=== PATIENT | male | born 1950 | race Caucasian/White ===

== ENCOUNTER 2017-07-07 17:33 | Inpatient (IN) | payer MEDICARE, BC ==
[~2017-07-07] VITALS: Ht 182.9 cm; Wt 88.0 kg
[~2017-07-07 17:33] MED LIST: ADULT LOW DOSE81 MG PO; BENADRYL25 MG PO; CARISOPRODOL 3350 MG PO; CENTRUM SILVER1 EAC4 PO; CEPHALEXIN 500500 M3 PO; COLACE100 MG PO; COPAXONE40 MG/1 ML SQ; FIBERCON625 M1 PO; FLOMAX0.4 MG PO; HYDROCODONE-AP1 EAC6 PO; HYDROCODONE-AP1 EACH PO; IBUPROFEN 400400 M2 PO; IBUPROFEN 600600 M1 PO; IBUPROFEN 800800 M1 PO; LEXAPRO 10 MG T10 M1 PO; LIORESAL 10 MG10 MG PO; OXYCONTIN20 M1 PO; PEPCID20 MG PO; PERCOCET 7.5-31 EACH PO; PREDNISONE 10 M10 MG PO; PREDNISONE 20 M20 MG PO; PROMETHAZINE12.5 M1 PO; SENNA8.6 MG PO; SENOKOT-S1 TA1 PO; SOLU-MEDRO1000 MG/1 IVPB; VICODIN 5-5001 EACH PO; ZOFRAN ODT4 MG PO
[2017-07-07 17:35] VITALS: BP 184/96
[2017-07-07 18:03] LABS: ABSOLUTE BASOPHILS 0.1 thou/uL (0.0-0.2); ABSOLUTE EOSINOPHILS 0.5 thou/uL (0.0-0.7); ABSOLUTE LYMPHOCYTES 1.8 thou/uL (0.8-5.3); ABSOLUTE MONOCYTES 0.5 thou/uL (0.0-1.2); ABSOLUTE NEUTROPHILS 5.9 thou/uL (1.6-8.1); BASOPHILS 0.7 %; EOSINOPHILS 6.1 %; HEMATOCRIT 37.8 % (42.0-52.0); HEMOGLOBIN 12.4 gm/dL (14.0-18.0); LYMPHOCYTES 20.6 %; MCH 29.5 pg (26.0-34.0); MCHC 32.7 g/dL (28.0-37.0); MCV 90.1 fL (80.0-100.0); MPV 6.5 fl. (7.2-11.1); NUCLEATED RBCS 0 /100WBC; PLATELET COUNT* 327 thou/uL (150-400); POLYS 66.6 %; RDW-CV 13.7 % (10.5-14.5); WBC 8.9 thou/uL (4.0-11.0)
[2017-07-07 18:15] LABS: APTT 24.3 Seconds (25.0-31.3); PROTIME 9.6 Seconds (9.20-11.50)
[2017-07-07 18:16] LABS: ANION GAP 10 mmol/L (7-16); BUN 15 mg/dL (7-18); CALCIUM 8.3 mg/dL (8.5-10.1); CHLORIDE 100 mmol/L (98-107); CO2 28 mmol/L (21-32); CREATININE 0.9 mg/dL (0.6-1.3); GLUCOSE 92 mg/dL (70-99); POTASSIUM 4.2 mmol/L (3.5-5.1); SODIUM 138 mmol/L (136-145)
[2017-07-07 18:32] LABS: URINE BILIRUBIN NEGATIVE (Negative); URINE BLOOD 2+ (Negative); URINE CLARITY CLEAR; URINE COLOR YELLOW; URINE GLUCOSE-RANDOM NEGATIVE (Negative); URINE KETONES TRACE (Negative); URINE LEUKOCYTES-REFLEX NEGATIVE (Negative); URINE NITRITE-REFLEX NEGATIVE (Negative); URINE PROTEIN NEGATIVE (Negative); URINE UROBILINOGEN 0.2 E.U./dl (0.2-1.0)
[2017-07-07 18:33] LABS: ALKALINE PHOSPHATASE 85 U/L (46-116); NT-PRO BRAIN NAT PEPTIDE 153 pg/mL (<300); SGOT 57 U/L (15-37); SGPT 107 U/L (30-65); TOTAL BILIRUBIN 0.8 mg/dL (<0.1-1.0); TOTAL PROTEIN 6.3 g/dL (6.4-8.2); TROPONIN-I LEVEL <0.06 ng/mL (<0.06)
[2017-07-07 18:43] LABS: CASTS None Seen /LPF (None Seen); CRYSTALS None Seen /LPF (None Seen); MUCUS 0-3 Light strn/LPF (None Seen); SQUAMOUS 0-3 Few /LPF (0-3)
[2017-07-07 18:44] LABS: BACTERIA-REFLEX None Seen /HPF (None Seen); RENAL EPITHELIAL CELLS 0-3 Few /LPF (None Seen); URINE RBC >20 Many /HPF (0-2); URINE WBC-REFLEX 0-5 Rare /HPF (0-5)
--- NOTE | 2017-07-07 18:56 | NUR ---
REPORT GIVEN TO MONA MORE.
[2017-07-07 20:34] VITALS: BP 165/88
--- NOTE | 2017-07-07 20:45 | NUR ---
NEW PATIENT ADMITTED TO THE FLOOR, PLEASANT, HERE, HOMERO IN PLACE, SHOWN CALL LIGHT AND BED CONTROLS, ALERT AND ORIENTED, FORGETFUL, BED ALARM PLACED ON FOR SAFETY, WILL CONTINUE TO MONITOR
[2017-07-07 22:00] VITALS: BP 169/93
[2017-07-07 23:54] VITALS: BP 137/73
[2017-07-08 03:38] VITALS: BP 110/66
--- NOTE | 2017-07-08 05:39 | NUR ---
PT SLEPT AT INTERVALS DURING THE NIGHT, IV FLUIDS INFUSING, PLEASANT, PT TURNED, VALENTIN IN PLACE, TOOKS PILLS WHOLE WITH WATER, CALL LIGHT IN REACH, BED ALARM ON FOR SAFETY, WILL CONTINUE TO MONITOR
[2017-07-08 08:00] VITALS: BP 137/79
--- NOTE | 2017-07-08 13:19 | EKG ---
[place] [address] ELECTROCARDIOGRAM REPORT Name: REYNA BECKMAN Room: [address] ADM IN M.R.#: [id number] Admission: 07/07/17 Attend Phys: Francisco Hart, Discharge: Date of : 46 Report #: [id number] THIS REPORT FOR: //name// [facility] ED Test Date: 2017-07-07 Test Time: 17:52:16 Pat Name: REYNA BECKMAN Department: Room: [facility] Gender: M Legal Clerk: Diego TOLEDO : 1950 Requested By: Luis Lynch Order Number: [id number] MD: Fabian Davenport Measurements Intervals [place] Rate: 69 P: 16 ID: [id number] QRS: 8 QRSD: 97 T: 6 QT: 390 QTc: 418 Interpretive Statements Sinus rhythm Abnormal R-wave progression, early transition Baseline wander in lead(s) V1 Compared to ECG 02/27/2015 11:18:54 No significant changes Electronically Signed On 07-08-2017 13:18:57 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
[2017-07-08 16:00] VITALS: BP 146/88
--- NOTE | 2017-07-08 18:43 | NUR ---
PATIENT IS ALERT AND ORIENTED, SOMEWHAT FORGETFUL AT TIMES. FAMILY AT BEDSIDE MOST OF THE DAY. VITAL SIGNS STABLE ON ROOM AIR. PAIN THAT IS CONTROLLED SOMEWHAT WITH ORAL PAIN MEDICATIONS. FAMILY AND PATIENT UPSET THAT HYDROCODONE WAS NOT ORDERED, PATIENT HAS BEEN ON FOR 20 PLUS YEARS. PATIENT HAS VALENTIN IN PLACE, INCONTINENT OF STOOL, IV IN RIGHT HAND WORKS WELL. EXTREME RIGHT SIDED WEAKNESS AND LEFT SIDE IS VERY WEAK WELL. CALL LIGHT IS IN REACH BUT PATIENT OFTEN JUST YELLS OUT "HELP", ROOM IS CLOSE TO NURSES DESK, FREQUENT CHECKS. WILL CONTINUE TO MONITOR.
[2017-07-08 20:00] VITALS: BP 120/77
[2017-07-08 21:05] VITALS: BP 120/77
--- NOTE | 2017-07-09 06:41 | NUR ---
PATIENT SLEPT WELL THROUGHOUT THE NIGHT WITHOUT ANY ISSUES. PAIN WELL CONTROLLED. VSS ON RA. PATIENT WAS GIVEN A BATH DURING SHIFT. PATIENT REMAINS ON BEDREST. VALENTIN TO DEPENDENT DRAINAGE WITH CLEAR/YELLOW URINE OUTPUT. PATIENT IS INCONTINENT AND TAMMY CARE PERFORMED AND BARRIER CREAM APPLIED. IV IN RIGHT HAND- FLUIDS RUNNING @ 100ML/HR. PATIENT INSTRUCTED TO USE CALL LIGHT WHEN NEEDING ASSISTANCE. HOURLY ROUNDS MADE. WILL CONTINUE WITH PLAN OF CARE AND NURSING TO MONITOR.
[2017-07-09 08:09] VITALS: BP 162/85
--- NOTE | 2017-07-09 08:24 | NUR ---
ASSUMED CARE OF PATIENT AFTER REPORT THIS MORNING. PATIENT AWAKE, ALERT, AND ORIENTED APPROPRIATELY. PHYSICAL ASSESSMENT COMPLETED AND CHARTED. COMPLAINED OF PAIN. GIVEN PRN MEDICATIONS, SEE EMAR FOR DOCUMENTATION. VITAL SIGNS STABLE. OXYGEN SATURATION WITHIN NORMAL LIMITS ON ROOM AIR. USES CALL LIGHT APPROPRIATELY, WITHIN REACH. DENIES NEEDS AT THIS TIME. NURSING WILL CONTINUE TO MONITOR.
[2017-07-09 15:26] LABS: ABSOLUTE BASOPHILS 0.1 thou/uL (0.0-0.2); ABSOLUTE EOSINOPHILS 0.6 thou/uL (0.0-0.7); ABSOLUTE LYMPHOCYTES 1.9 thou/uL (0.8-5.3); ABSOLUTE MONOCYTES 0.6 thou/uL (0.0-1.2); ABSOLUTE NEUTROPHILS 5.4 thou/uL (1.6-8.1); BASOPHILS 0.8 %; HEMATOCRIT 35.2 % (42.0-52.0); HEMOGLOBIN 11.8 gm/dL (14.0-18.0); LYMPHOCYTES 22.3 %; MCH 30.4 pg (26.0-34.0); MCHC 33.6 g/dL (28.0-37.0); MCV 90.6 fL (80.0-100.0); MONOCYTES 6.8 %; MPV 6.7 fl. (7.2-11.1); NUCLEATED RBCS 0 /100WBC; PLATELET COUNT* 357 thou/uL (150-400); POLYS 63.1 %; RBC 3.88 mil/uL (4.50-6.00); WBC 8.6 thou/uL (4.0-11.0)
[2017-07-09 15:35] LABS: CALCIUM 8.1 mg/dL (8.5-10.1); CREATININE 0.8 mg/dL (0.6-1.3); MAGNESIUM 1.9 mg/dL (1.8-2.4); POTASSIUM 4.4 mmol/L (3.5-5.1)
[2017-07-09 16:00] VITALS: BP 152/80; BP 97/57
--- NOTE | 2017-07-09 17:49 | NUR ---
PATIENT REMAINS ALERT AND ORIENTED APPROPRIATELY. RECEIVED SCHEDULED MEDICATIONS THIS SHIFT, WELL PRN FOR PAIN, SEE EMAR FOR DOCUMENTATION. DENIES CONCERNS OR NEEDS. CALL LIGHT WITHIN REACH. NURSING WILL CONTINUE TO MONITOR.
[2017-07-09 19:30] VITALS: BP 158/93
[2017-07-10 04:03] LABS: HEMATOCRIT 33.1 % (42.0-52.0); HEMOGLOBIN 11.1 gm/dL (14.0-18.0); MCH 30.4 pg (26.0-34.0); MCHC 33.6 g/dL (28.0-37.0); MCV 90.4 fL (80.0-100.0); MPV 6.7 fl. (7.2-11.1); RBC 3.66 mil/uL (4.50-6.00); RDW-CV 13.7 % (10.5-14.5); WBC 8.9 thou/uL (4.0-11.0)
[2017-07-10 04:10] LABS: CALCIUM 7.8 mg/dL (8.5-10.1); CREATININE 0.9 mg/dL (0.6-1.3); POTASSIUM 4.3 mmol/L (3.5-5.1)
--- NOTE | 2017-07-10 04:48 | NUR ---
PATIENT HAS REMAINED ALERT AND ORIENTED X 4 THROUGHOUT THE SHIFT AND RESTING QUIETLY ON HOURLY ROUNDS. TURNED Q2H. REMAINS WEAK. MEDICATED FOR PAIN X 3 TO GOOD EFFECT. VITAL SIGNS STABLE. NO CHANGE IN NEURO CHECKS. CONTINUE TO MONITOR.
[2017-07-10 05:00] LABS: ALBUMIN 2.5 g/dL (3.4-5.0); TOTAL BILIRUBIN 0.5 mg/dL (<0.1-1.0); TOTAL PROTEIN 5.3 g/dL (6.4-8.2)
[2017-07-10 08:00] VITALS: BP 112/73; BP 131/74
[2017-07-10 08:41] LABS: CHOLESTEROL 235 mg/dL (<200); HDL CHOLESTEROL 46 mg/dL (>40); LDL CHOLESTEROL 167 mg/dL (<100); TC:HDL 5.1 Ratio (Not establshd); TRIGLYCERIDE 111 mg/dL (<150); VLDL 22 mg/dL (<40)
[2017-07-10 08:43] LABS: SERUM ASSESSMENT Clear
--- NOTE | 2017-07-10 13:43 | NUR ---
SW met with pt to complete initial assessment, introduce self, and SW role. Pt is known to this SW due to pt recent stay in acute rehab. Pt lives with his and had [facility] sign on with him at recent dc home. Pt has all the recommended DME at home already. Pt says he thinks that he and the staff are not sure why he is here and he hopes to be able to recover and go home again soon. SW to remain available to assist with safe dc planning.
[2017-07-10 16:00] VITALS: BP 134/93
[2017-07-10 20:00] VITALS: BP 166/94
--- NOTE | 2017-07-10 20:34 | NUR ---
ASSUMED CARE FOR THIS PATIENT THIS AM. A/O X 4, REPORTS CHRONIC DISCOMFORT TO BACK, NECK, FOOT. ANALGESIC REGIMEN MANAGED BY DR. ELISE, EFFECTIVE THIS SHIFT. PATIENT BATHED, OUT OF BED FOR MEALS THIS SHIFT, JIMBO WELL. WORKED WITH THERAPIES ORDERED. EXT ASSIST X 2, NEARLY COMPLETE DEPENDENT WITH BED MOBILITY, TRANSFERS, DRESSING, AMBULATION. NEW IV ACCESS TO LEFT FOREARM X 2 ATTEMPTS, JIMBO WELL. INDWELLING CATHETER REMOVED ORDERED, JIMBO WELL, VOIDS REGULARLY, IN SMALL-MOD AMT. CONT POC.
[2017-07-11 04:53] LABS: HEMATOCRIT 33.3 % (42.0-52.0); HEMOGLOBIN 11.1 gm/dL (14.0-18.0); MCH 30.1 pg (26.0-34.0); MCHC 33.2 g/dL (28.0-37.0); MCV 90.6 fL (80.0-100.0); RBC 3.67 mil/uL (4.50-6.00); RDW-CV 13.8 % (10.5-14.5); WBC 9.5 thou/uL (4.0-11.0)
--- NOTE | 2017-07-11 04:53 | NUR ---
PT SLEPT AT INTERVALS DURING THE NIGHT, USED URINAL AND INCONTINENT, PT TURNED, IV FLUIDS INFUSED, PLEASANT, CALL LIGHT IN REACH, BED ALARM ON FOR SAFETY, WILL CONTINUE TO MONITOR
[2017-07-11 04:54] LABS: CALCIUM 8.3 mg/dL (8.5-10.1); CREATININE 0.9 mg/dL (0.6-1.3); MAGNESIUM 2.2 mg/dL (1.8-2.4)
[2017-07-11 07:45] VITALS: BP 135/79
--- NOTE | 2017-07-11 09:11 | CON ---
[address] [address] CONSULTATION Name: REYNA BECKMAN Room: [address] IN M.R.#: [id number] Admission: 07/07/17 Attend Phys: Francisco Hart, Discharge: Date of : 46 Report #: [id number] THIS REPORT FOR: //name// CC: Fabian Hart DATE OF SERVICE: 07/08/2017 HISTORY OF PRESENT ILLNESS: This is a 66-year-old male patient who is well known to me. He has a diagnosis of MS. He is not doing well. He was admitted here not too long ago with relapse of MS. I reviewed those records and it looks like he became better after a dose of steroids and then only recently went home and then came back because he is having weakness in the lower extremities. He has been on Copaxone for long time and he has difficulty affording the disease modifying treatment. During his last admission, it looks like he had an MRI of the head and thoracic spine. They were without contrast. He had MRI of the brain with contrast in the past. It looks like he got the contrast twice. 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 His vitamin D was checked last time and over a period of time in fact, most of his blood workup has been checked and that has been unremarkable. REVIEW OF SYSTEMS: Positive for multiple sclerosis. This patient also looks like he has had some trouble with strokes in the past. He has been worked up for that some as an outpatient and some as an inpatient. At this time, it looks like his CPK is also high. Last time, his MRI of the C-spine was not done. This was his relevant 14-point review of system. PAST MEDICAL HISTORY: Positive for MS and he also had what looks like stroke in the past. FAMILY HISTORY: Negative for early age stroke. SOCIAL HISTORY: He does not drink alcohol on a regular basis. PHYSICAL EXAMINATION: Indicate he is alert, he is responsive. His speech looks unremarkable and his fund of knowledge and memory is at his baseline. His cranial nerve examination looks mostly unremarkable. He is weak in all 4 extremities. He is weak in the upper extremities and lower extremity. His position sense is impaired. His reflexes are symmetrical. There is no meningeal sign. He is a well-developed individual who does not have any dysmorphic features of eyes, ears and face. His blood pressure is 137/79, respirations 18, pulse is 84, temperature is 99.1. No imaging [place] [address] CONSULTATION Name: REYNA BECKMAN Room: [address]#: [id number] Admission: 07/07/17 Attend Phys: Francisco Hart, Discharge: Date of : 46 Report #: [id number] IMPRESSION: This patient is having multiple problems: 1. He has multiple sclerosis and this may be relapse of multiple sclerosis. We need to look for multiple sclerosis lesion and the cervical spine lesion in this patient. Last time, MRI was done without contrast only and we may have to do with and without contrast. I will start with without contrast first. 2. His CPK is high and that is somewhat worrisome. The question is whether he is having some myopathy in that regard. 3. He did have a stroke in the past. We will also like to check him for that. I need to check in the office what kind of workup he had, but I think most of the workup was done on him that time. I do not know whether this patient can stay at home anymore because he is pretty profoundly weak and what can be done. He should be on some stronger medication for multiple sclerosis rather than his Copaxone. We have discussed with him in the past and I discussed that again with him. RECOMMENDATIONS: 1. I will try to go and review his records in the computer at the office. 2. I will like to get some more blood workup done tomorrow and get him evaluated by PT/OT and see how he does with it. 3. I will get an MRI of the C-spine. 4. We need to see how he does with PT and then decide about further management in this patient. More than 50 minutes of time was spent taking care of this patient today and majority of that time was spent counseling the patient on above matters. Thank you very much for this referral. <ELECTRONICALLY SIGNED> By: Will Gibbs MD 07/11/17 0911 [id number] Gibbs MD /nt
[2017-07-11 15:34] VITALS: BP 144/88
--- NOTE | 2017-07-11 16:58 | NUR ---
PATIENT IS UP IN WHEELCHAIR. PATIENT WAS UP WITH ASSIST OF ONE WITH GAIT BELT. PATIENT HAS BEEN ALERT AND ORIENTED THROUGHOUT DAY. PATIENT HAS HAD COMPLAINTS OF PAIN, TREATED ADEQUATELY WITH MEDICATION. PATIENT HAS GOOD APPETITE. PATIENT DENIES ANY NEEDS AT THIS TIME. CALL LIGHT WITHIN REACH. WILL CONTINUE TO MONITOR.
[2017-07-11 21:21] VITALS: BP 149/82
[2017-07-12 04:34] LABS: HEMATOCRIT 31.8 % (42.0-52.0); HEMOGLOBIN 10.7 gm/dL (14.0-18.0); MCH 30.2 pg (26.0-34.0); MCHC 33.6 g/dL (28.0-37.0); MCV 89.9 fL (80.0-100.0); RBC 3.53 mil/uL (4.50-6.00); WBC 8.3 thou/uL (4.0-11.0)
[2017-07-12 04:48] LABS: CALCIUM 8.1 mg/dL (8.5-10.1); CREATININE 0.9 mg/dL (0.6-1.3); MAGNESIUM 2.1 mg/dL (1.8-2.4); POTASSIUM 4.2 mmol/L (3.5-5.1)
--- NOTE | 2017-07-12 05:18 | NUR ---
PATIENT SLEPT WELL DURING THIS SHIFT. PT ABLE TO REPOSITION HIMSELF ON OCCASSION BUT WAS ALSO TURNED. PT REQUESTED PAIN MEDICATION X1 AND RECEIVED NORCO 10/325. PT RETURNED TO SLEEP AFTERWARDS. PT WITH SALINE LOCK IN LT FOREARM. PT VOIDS PER URINAL. FREQUENTLY USED ITEMS AND CALL LIGHT WITHIN REACH. SIDERAILS UPX4 AND BED ALARM ON. WILL CONTINUE TO MONITOR.
[2017-07-12 08:00] VITALS: BP 154/80
[2017-07-12 15:44] VITALS: BP 128/83
--- NOTE | 2017-07-12 16:50 | NUR ---
SW spoke with pt about dc planning. Pt prefers to be able to admit to [facility] rehab unit. SW explained possibility of pt not being accepted on rehab unit and provided list and options for SNF placement if needed. SW encouraged pt to review list and SW will meet with pt in the morning to discuss SW faxing referrals to SNFs as another option and SW arranging for dc to SNF if needed.
--- NOTE | 2017-07-12 18:57 | NUR ---
RESUMED CARE THIS AM. CARDIAC ECHO ORDERED, VITAL SIGNS STABLE, DISCOMFORT TO BACK AND FOOT MANAGED WELL WITH MEDICATION. JIMBO DIET WELL, CONT OF BOWEL AND BLADDER THIS SHIFT. EXT ASSIST WITH ADL, DISCHARGE PLAN IS TO ADMIT TO [facility] FOR THERAPY SERVICE, CONT POC.
[2017-07-13 00:07] VITALS: BP 142/89
[2017-07-13 04:39] LABS: HEMATOCRIT 31.6 % (42.0-52.0); HEMOGLOBIN 10.6 gm/dL (14.0-18.0); MCH 30.3 pg (26.0-34.0); MCHC 33.4 g/dL (28.0-37.0); MCV 90.8 fL (80.0-100.0); RBC 3.48 mil/uL (4.50-6.00); RDW-CV 14.2 % (10.5-14.5); WBC 8.2 thou/uL (4.0-11.0)
[2017-07-13 05:07] LABS: CREATININE 0.9 mg/dL (0.6-1.3); MAGNESIUM 2.1 mg/dL (1.8-2.4); POTASSIUM 4.1 mmol/L (3.5-5.1)
[2017-07-13 08:00] VITALS: BP 148/89
--- NOTE | 2017-07-13 14:56 | 2DMMODE ---
[place] [address] 2 D/M-MODE ECHOCARDIOGRAM Name: REYNA BECKMAN Room: [address] IN .R.#: [id number] Admission: 07/07/17 Attend Phys: Francisco Vickers Discharge: Date of : 46 Date of Service: 07/13/17 1456 Report #: [id number] THIS REPORT FOR: //name// APPROVED REPORT Study performed: 07/13/2017 10:59:30 EXAM: Comprehensive 2D, Doppler, and color-flow Echocardiogram Patient Location: Bedside BSA: 2.10 HR: 82 bpm BP: 142/89 mmHg Other Information Study Quality: Fair Technically limited study due to inability to position patient. Indications CVA/TIA Echo Enhancing Agent Indication: Rule Out Septal Defect Agent(s) / Amount(s) Used: Agitated Saline cc 2D Dimensions LVEF(%): 56.03 (>50%) IVSd: 11.79 (7-11mm) LVOT Diam: 21.99 (18-24mm) LVDd: 46.31 mm PWd: 11.17 (7-11mm) Ascending Ao: 30.52 (22-36mm) LVDs: 32.79 (25-40mm) Aortic Root: 33.25 mm Calix's LVEF: 56.03 % Volumes Left Atrial Volume (Systole) LA ESV Index: 16.20 mL/m2 Aortic Valve AoV Peak Brant.: 0.89 m/s AO Peak Gr.: 3.20 mmHg LVOT Max P.40 mmHg AO Mean Gr.: 2.00 mmHg LVOT Mean P.86 mmHg LVOT Max V: 0.59 m/s AO V2 VTI: 16.10 cm LVOT Mean V: 0.43 m/[place] [address] 2 D/M-MODE ECHOCARDIOGRAM Name: REYNA BECKMAN Room: [address] IN ..#: [id number] Admission: 07/07/17 Attend Phys: Francisco Vickers Discharge: Date of : 46 Date of Service: 07/13/17 1456 Report #: [id number] BRUNO (VTI): 3.32 cm2 LVOT V1 VTI: 14.09 cm Mitral Valve E/A Ratio: 0.64 MV Decel. Time: 252.78 ms MV E Max Brant.: 0.41 m/s MV PHT: 73.31 ms MVA (PHT): 3.00 cm2 TDI E/Lateral E': 5.13 E/Medial E': 5.13 Medial E' Brant.: 0.08 m/s Lateral E' Brant.: 0.08 m/s Pulmonary Valve PV Peak Brant.: 0.90 m/s PV Peak Gr.: 3.23 mmHg Tricuspid Valve RAP Estimate: 5.00 mmHg TR Peak Gr.: 13.81 mmHg RVSP: 18.81 mmHg PA Pressure: 18.81 mmHg Left Ventricle The left ventricle is normal size. There is normal LV segmental wall motion. Mild concentric left ventricular hypertrophy. Left ventricular systolic function is normal. The left ventricular ejection fraction is within the normal range. LVEF is 50-55%. Grade I - abnormal relaxation pattern. Right Ventricle The right ventricle is normal size. The right ventricular systolic function is normal. Atria The left atrium size is normal. Injection of contrast documented no interatrial shunt. The right atrium size is normal. Aortic Valve Aortic valve leaflets are mildly thickened. Trace aortic regurgitation. There is no aortic valvular stenosis. Mitral Valve Mitral valve leaflets are mildly thickened. Mild mitral regurgitation. No evidence of mitral valve stenosis[place] [address] 2 D/M-MODE ECHOCARDIOGRAM Name: REYNA BECKMAN Room: [address]#: [id number] Admission: 07/07/17 Attend Phys: Francisco Vickers Discharge: Date of : 46 Date of Service: 07/13/17 1456 Report #: [id number] The tricuspid valve is normal in structure. Trace tricuspid regurgitation. Pulmonic Valve Pulmonic valve is not well visualized. There is no pulmonic valvular regurgitation. Great Vessels The aortic root is normal in size. IVC is not well visualized. Pericardium There is no pericardial effusion. <Conclusion> Injection of contrast documented no interatrial shunt. Mild concentric left ventricular hypertrophy. LVEF is 50-55%. <ELECTRONICALLY SIGNED> By: Reyna Fisher MD, FACC 07/13/17 1456 1456 1456 Reyna Fisher MD, FACC /INF
--- NOTE | 2017-07-13 15:56 | NUR ---
SW was informed that pt will be able to dc to [facility] inpatient rehab unit on Sunday.
[2017-07-13 16:00] VITALS: BP 135/73
--- NOTE | 2017-07-13 16:53 | NUR ---
RECEIVED CONSULT FOR POSSIBLE REHAB ADMISSION. CONSULT HAS BEEN ACKNOWLEDGED BY LIABILITY ANALYST AND DR. VILLEDA. PT KNOWN TO THIS REHAB UNIT FROM RECENT DISCHARGE. PT NOW ADMITTED WITH [facility] AND MS EXACERBATION. NEUROLOGY IS FOLLOWING, ECHO IS PENDING. PT HAS BEEN WORKING WITH THERAPIES AND WOULD BENEFIT FROM ACUTE REHAB. WILL PLAN TO ACCEPT PT TO REHAB ON SUNDAY PENDING WORKUP COMPLETION AND MEDICAL STABLITY. THANK YOU FOR THIS CONSULT.
--- NOTE | 2017-07-13 19:40 | NUR ---
RESUMED CARE THIS AM. A/O X 4, CONT TO APPLY EFFORT TOWARD INDEPENDENCE WITH ADL, CONT TO REQUIRE SETUP AND EXT ASSIST OF ONE WITH MOST ADL. CHRONIC PAIN MANAGED WELL WITH ORAL MEDICATION. JIMBO DIET WELL, CONTINENT OF BOWEL AND BLADDER. CARDIAC ECHO COMPLETED TODAY, NO FURTHER ORDERS. PATIENT TO TRANSFER TO ACUTE REHAB ON 07-16-16.
[2017-07-13 23:39] VITALS: BP 158/73
[2017-07-14 03:49] LABS: HEMATOCRIT 33.9 % (42.0-52.0); HEMOGLOBIN 11.3 gm/dL (14.0-18.0); MCH 30.1 pg (26.0-34.0); MCHC 33.4 g/dL (28.0-37.0); MCV 90.3 fL (80.0-100.0); RBC 3.75 mil/uL (4.50-6.00); WBC 8.1 thou/uL (4.0-11.0)
[2017-07-14 03:58] LABS: CALCIUM 8.5 mg/dL (8.5-10.1); CREATININE 0.8 mg/dL (0.6-1.3); MAGNESIUM 2.2 mg/dL (1.8-2.4); POTASSIUM 3.8 mmol/L (3.5-5.1)
[2017-07-14 04:04] VITALS: BP 126/44
--- NOTE | 2017-07-14 05:25 | NUR ---
PATIENT SLEPT PART OF THE NIGHT. IV REMAINS SALINE LOCKED. PATIENT WAS GIVEN PAIN MEDS NEEDED WITH GOOD RELIEF. WILL CONTINUE TO MONITOR.
[2017-07-14 07:25] VITALS: BP 148/81
--- NOTE | 2017-07-14 17:36 | NUR ---
PATIENT A&OX4, ROOM AIR, IV LEFT WRIST SALINE LOCK. UP WITH TRANSFERS WITH ASSSISTX1 WITH WALKER AND GAITBELT. WEAK WITH TRANSFERS, CAN STAND AND PIVIOT. USES W/C TO GET AROUND. C/O PAIN, RELIEF WITH PAIN MEDICATION. NO OTHER CONCERNS AT THIS TIME. APPROPRIATE AND COOPORATIVE WITH CARE.
[2017-07-15 00:24] VITALS: BP 151/85
[2017-07-15 03:37] LABS: HEMATOCRIT 33.9 % (42.0-52.0); HEMOGLOBIN 11.3 gm/dL (14.0-18.0); MCH 30.1 pg (26.0-34.0); MCHC 33.3 g/dL (28.0-37.0); MCV 90.4 fL (80.0-100.0); MPV 6.9 fl. (7.2-11.1); RBC 3.75 mil/uL (4.50-6.00); RDW-CV 13.9 % (10.5-14.5); WBC 8.1 thou/uL (4.0-11.0)
[2017-07-15 03:46] LABS: CALCIUM 8.1 mg/dL (8.5-10.1); CREATININE 0.8 mg/dL (0.6-1.3); MAGNESIUM 2.2 mg/dL (1.8-2.4); POTASSIUM 3.7 mmol/L (3.5-5.1)
--- NOTE | 2017-07-15 06:05 | NUR ---
PATIENT SLEPT PART OF THE NIGHT. IV REMAINS SALINE LOCKED. PATIENT WAS GIVEN PRN PAIN MEDS NEEDED WITH GOOD RELIEF. PATIENT IS SUPPOSED TO BE TRANSFERRED TO REHAB TOMORROW. WILL CONTINUE TO MONITOR.
[2017-07-15 08:38] VITALS: BP 148/89
[2017-07-15 15:48] VITALS: BP 143/82
--- NOTE | 2017-07-15 17:09 | NUR ---
DAY 9 OF STAY. CONT TO REQUIRE EXT ASSIST WITH ADL, DOES PLACE MUCH EFFORT IN BEING INDEPENDENT POSSIBLE. REQUIRES WALKER AND W/C FOR TRANSFERS AND MOBILITY. EXT ASSIST WITH BED MOBILITY. PLAN IS TO TRANSFER TO ACUTE INPATIENT REHAB TOMORROW. DISCOMFORT MANAGED WELL WITH MEDICATION. FAMILY AT BEDSIDE MOST OF THIS SHIFT.
[2017-07-16 00:37] VITALS: BP 135/74
--- NOTE | 2017-07-16 05:25 | NUR ---
PT SLEPT FAIRLY WELL OVERNIGHT, RECEIVING PRN PAIN MED Q4 HOURS WITH GOOD RELIEF.UP TO WC WITH ASSIST TO BR TO VOID, NEEDS ASSISTANCE WITH TRANSFER AND STANDING. NO IV ACCESS. VSS. NO LABS THIS MORNING. ANTICIPATING DC TO REHAB TODAY. ABLE TO USE CALL LITE AND MAKE NEEDS KNOWN.
[2017-07-16 08:00] VITALS: BP 111/82
[2017-07-16 13:26] VITALS: BP 111/82
[2017-07-16] MEDS ORDERED: OXYCODONE HCL 55 MG PO (13:47)
[2017-07-16] MEDS ORDERED: LISINOPRIL5 MG PO (13:49)
[2017-07-16] MEDS ORDERED: DIPHENHIST50 MG PO (13:53)
[2017-07-16] MEDS ORDERED: CELEXA20 MG PO (13:55)
[2017-07-16] MEDS ORDERED: ENOXAPARIN40 MG/0.1 SUBQ (13:57)
== END 2017-07-16 14:43 | DRG 59 ==
LOC: M.ERS 17:33 → M.3W 18:19 → M.TBA-ER 18:19 → M.3W 21:18
PROVIDERS: Family Medicine; Internal Medicine; ADMIT Family Medicine
DX: G35 Multiple sclerosis (principal); M62.82 Rhabdomyolysis; E44.1 Mild protein-calorie malnutrition; I16.0 Hypertensive urgency; R31.9 Hematuria, unspecified; F32.9 Major depressive disorder, single episode, unspecified; E78.5 Hyperlipidemia, unspecified; D64.9 Anemia, unspecified; Z87.891 Personal history of nicotine dependence; Z83.49 Family history of other endocrine, nutritional and metabolic diseases; Z68.26 Body mass index [BMI] 26.0-26.9, adult; Z79.82 Long term (current) use of aspirin; Z79.899 Other long term (current) drug therapy

== ENCOUNTER 2017-07-16 11:55 | Inpatient (IN) | payer MEDICARE, BC ==
[~2017-07-16] VITALS: Ht 182.9 cm; Wt 84.4 kg
[2017-07-16] MEDS ORDERED: OXYCODONE HCL 55 MG PO (13:47)
[2017-07-16] MEDS ORDERED: LISINOPRIL5 MG PO (13:49)
[2017-07-16] MEDS ORDERED: DIPHENHIST50 MG PO (13:53)
[2017-07-16] MEDS ORDERED: CELEXA20 MG PO (13:55)
[2017-07-16] MEDS ORDERED: ENOXAPARIN40 MG/0.1 SUBQ (13:57)
[2017-07-16 15:30] VITALS: BP 141/77
--- NOTE | 2017-07-16 16:38 | NUR ---
ASSUMMED CARE OF PT UPON ADMISSION, PT ALERT AND ORIENTED, PT TRANSFERS WITH MIN/MOD ASSIST FROM W/C TO TOILET, AND W/C TO BED, PROPELS WHEELCHAIR WITHOUT DIFFICULTY, PT COMPLAINS OF LEFT FOOT AND BACK PAIN, MEDICATED PER ORDERS, PT DENIES NAUSEA, PT DOES COMPLAIN OF CONSTIPATION, STATES NO STOOL FOR 5 DAYS, LAXATIVE ORDERS OBTAINED, ORIENTED TO ROOM, ASSESSMENT COMPLETE, HOURLY ROUNDING DONE, ASSESSMENT DONE, WILL CONTINUE TO MONITER.
[2017-07-16 20:16] VITALS: BP 129/73
[2017-07-17 04:59] LABS: HEMATOCRIT 33.7 % (42.0-52.0); HEMOGLOBIN 11.1 gm/dL (14.0-18.0); MCH 29.9 pg (26.0-34.0); MCHC 32.7 g/dL (28.0-37.0); MCV 91.2 fL (80.0-100.0); MPV 7.3 fl. (7.2-11.1); RBC 3.7 mil/uL (4.50-6.00); RDW-CV 13.8 % (10.5-14.5); WBC 9.7 thou/uL (4.0-11.0)
[2017-07-17 05:02] LABS: POTASSIUM 4.3 mmol/L (3.5-5.1)
--- NOTE | 2017-07-17 05:10 | NUR ---
ASSUMED PT CARE AT 1930. PT ALERT AND ORIENTED X4, POLITE AND COOPERATIVE WITH CARES. PT TAKES PILLS WHOLE WITH WATER WITHOUT DIFFICULTY. PT UP TO VOID WITH MIN ASSIST, GAIT BELT AND WHEELCHAIR WITHOUT DIFFICULTY. PT COMPLAINS OF LEFT FOOT AND BACK PAIN. PRN AND SCHEDULED PAIN MEDICATIONS GIVEN PER SEP. NO STOOL THIS SHIFT. CALL LIGHT AND FREQUENTLY USED ITEMS WITHIN REACH. USES CALL LIGHT APPROPRIATELY. HOURLY ROUNDING IN PROGRESS, WILL CONTINUE TO MONITOR.
[2017-07-17 07:00] VITALS: BP 132/64
--- NOTE | 2017-07-17 10:11 | NUR ---
SW met with pt to complete initial assessment, introduce self, and SW role on rehab. Pt known to this SW due to pt recent admission and rehab stay. Pt plans to dc home with and HH services. Pt said that he and his had the discussion about SNFs as he was awaiting to find out if he would be able to be admitted to inpatient rehab unit and they determined that pt would try to dc home with HH before they would ever agree to pt dc to SNF. Pt has all needed DME at home already. Pt active with [facility]. Pt hopeful to have at least a week here but then he said he may feel closer to being ready to go home. SW to review team conference summary with pt tomorrow. SW to follow to assist with safe dc planning.
[2017-07-17 20:55] VITALS: BP 143/57
--- NOTE | 2017-07-18 01:42 | NUR ---
ASSUMED CARE @ 1944-07/17-TU.APPEARS SLEEPING BUT WOKE UP.BED ALARM PUT ON @ 1944.EDEMA-+1 PITTING BOTH FEET.HOB UP.CALLS FOR ASSIST TO TOILET TO VOID. 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
--- NOTE | 2017-07-18 05:54 | NUR ---
SLEEPING SINCE 1945.BRP PER W/C X1.BRP W/ WALKER W/ ASSIST X2.SEE 2ND PAIN MANAGEMENT @ 7092.TOOK ALL ORANGE SHERBET & 2 PACKAGES HUAN CRACKERS HS SNACKS.
[2017-07-18 08:12] VITALS: BP 137/72
--- NOTE | 2017-07-18 15:10 | NUR ---
SW met with pt to review team conference summary. Plan for pt to remain on rehab and continue therapies and for team to reassess pt length of stay during team conference on next Sunday. Pt in agreement with plan and hopeful to continue to make progress in therapies over the next week. SW to continue to follow to assist with safe dc planning.
--- NOTE | 2017-07-18 18:21 | NUR ---
ASSUMED CARE AT 0730. HX OF MS. VALDOVINOS COOPERATIVE, ALERT AND ORIENTED. PARTICIPATING IN THERAPIES THROUGHOUT THE DAY. AMBULATING TO BR TO VOID WITH WALKER G BELT. MEDICATED X 2 FOR C/O L FOOT AND BACK PAIN. PROPELLS W/C TO THERAPIES AND DR FOR MEALS. USING CALL LIGHT APPROPRIATELY FOR ASSIST, BED CHAIR ALARM FOR PT. SAFETY. FEEDS SELF WITH SET UP AND TAKES MEDS WITHOUT DIFFICULTY. HERE VISITING TODAY.
[2017-07-18 19:30] VITALS: BP 156/77
--- NOTE | 2017-07-18 21:00 | NUR ---
AWAKENED FOR HS REASSESSMENT AND MED PASS. NORCO GIVEN PER REQUEST FOR C/O BACK PAIN. SNACK PROVIDED. TAKES MEDS WHOLE WITH WATER.
--- NOTE | 2017-07-19 05:23 | NUR ---
RESTED ON/OFF. NORCO GIVEN X 2 DURING THE NIGHT FOR C/O LOW BACK PAIN WITH SOME RELIEF. UP X ONE DURING THE NIGHT TO THE BATHROOM TO VOID. PT AMBULATES TO THE BATHROOM WITH WALKER, GAITBELT. DOES OWN HYGIENE AND CLOTHING ADJUSTMENTS. HOURLY ROUNDING IN PROGRESS.
[2017-07-19 07:53] VITALS: BP 113/61
--- NOTE | 2017-07-19 13:32 | NUR ---
Nutrition: Pt admitted to Rehab with MS newton. Wt: 180#. Regular diet, eating 100%. Albumin 2.5, prealbumin 22.7. Low nutrition risk at this time. Will follow weekly.
--- NOTE | 2017-07-19 18:26 | NUR ---
PT HAS PARTICIPATED WITH THERAPIES AND CALLS FOR ASSIST NEEDS. PT AMBULATES WITH WALKER, GAITBELT AND MIN ASSIST OF 1 SHORT DISTANCES AND IS W/C MOBILE ON UNIT. PRN FOR PAIN GIVEN WITH GOOD EFFECT. PT REMAINS ALERT AND ORIENTATED AND PROGRESSES TOWARDS GOALS AND HOURLY ROUNDING CONTINUES. PT HAD LARGE BM THIS AM AND VOIDS WELL.
[2017-07-19 20:25] VITALS: BP 142/66
--- NOTE | 2017-07-19 22:31 | NUR ---
ASSUMED CARE AT 1930. PATIENT S/P MS EXACERBATION. RESTING IN BED AT CHANGE OF SHIFT. UP WITH ONE, GAIT BELT, WALKER. VOIDED PER SITTING ON TOILET. TAKES MULTIPLE PILLS AT A TIME WITH WATER WITHOUT DIFF. MEDICATED FOR PAIN, SEE SEP. HX OF TAKING PAIN MEDS AT HOME. MOVES WELL IN BED. CALL LITE IN REACH. BED ALARM ON. HOURLY ROUNDS CONTINUE.
--- NOTE | 2017-07-20 06:22 | NUR ---
RESTED IN BED ALL NIGHT EXCEPT TO VOID. TAKES PAIN MEDS Q4H. TAKES MEDS WITH WATER WITHOUT DIFF. TURNS SELF. NEEDS EXTRA TIME TO RISE, BUT ABLE TO DO IT HIMSELF. STILL UNSTEADY WITH AMBULATION, NEEDS CUEING. ABLE TO DO OWN CLOTHING ADJUSTMENT AND HYGIENE. ABLE TO GET HIS LEGS INTO BED. HOURLY ROUNDS CONTINUE. BED ALARM ON. CALL LITE IN REACH.
[2017-07-20 07:30] VITALS: BP 125/74
--- NOTE | 2017-07-20 18:44 | NUR ---
ASSUMED CARE AT 0730. ALERT ORIENTED PLEASANT COOPERATIVE. HX OF MS. TRANSFERS WITH SBA G BELT WALKER. MEDICATED X 3 FOR C/O PAIN WITH PRN MED. PARTICIPATING IN THERAPIES THROUGHOUT THE DAY. PROPELLS SELF IN W/C TO THERAPIES AND DR. HITCHCOCK GOOD FEEDS SELF AND TAKES MEDS WITH WATER WITHOUT DIFFICULTY. USES CALL LIGHT APPROPRIATELY FOR ASSIST. BED CHAIR ALARM ON FOR PT. SAFETY. VOIDS IN BR TOILET ABLE TO DO CLOTHING ADJUSTMENTS AFTERWARD.
[2017-07-20 20:16] VITALS: BP 154/74
--- NOTE | 2017-07-21 02:19 | NUR ---
ASSUMED CARE @ 1929-07/20-SUNDAY.AWAKE IN BED W/ HOB UP WATCHING SHOW ON PHONE. 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
--- NOTE | 2017-07-21 05:21 | NUR ---
SLEEPING SINCE 2314.AWAKE ONLY FOR BRP X3 W/ ASSIST.SEE PAIN MANAGEMENTS W/ PRN PAIN MED @ 8736 & 4081.TOOK ALL ORANGE SHERBET & 2 PIECES MARIELA.CHIP COOKIES HS SNACKS.
--- NOTE | 2017-07-21 05:40 | NUR ---
RIGHT OUTER HEEL-LIGHT PURPLE @ 1930 & KEPT ELEVATED & OFF BED SINCE 1929. CHECKED @ 0530-APPEARS LIGHT PINK NOW BUT BLANCHED WELL.
[2017-07-21 08:00] VITALS: BP 158/72
--- NOTE | 2017-07-21 16:46 | NUR ---
ASSUMMED CARE OF PT AT 0730, PT ALERT AND ORIENTED, TRANSFERS WITH ASSIST OF 1, GB AND WALKER, VOID PER TOILET, AMBULATED TO BATHROOM X 3 THIS SHIFT.PT COMPLAINS OF LEFT FOOT AND BACK PAIN, MEDICATED PER ORDER, DENIES NAUSEA, TAKING FOOD AND FLUIDS WELL, PARTICIPATED IN ALL THERAPIES, HOURLY ROUNDING COMPLETED, ASSESSMENT COMPLETE, WILL CONTINUE TO MONITER.
[2017-07-21 20:35] VITALS: BP 156/74
--- NOTE | 2017-07-22 05:10 | NUR ---
SLEEPING SINCE 0000.AWAKE @ INTERVALS FOR BRP X3.EDEMA-+2 PITTING FEET.TOOK ALL ORANGE SHERBET & 2 PACKAGES HUAN CRACKERS HS SNACKS.SEE PAIN MANAGEMENTS W/ HYDROCODONE ONE TAB ORAL @ 1930,2351 & 0410.
--- NOTE | 2017-07-22 05:15 | NUR ---
ASSUMED CARE @ 1919-07/21-SAT.AWAKE IN BED W/ HOB UP.OUTER PART RIGHT HEEL-PINK. 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
[2017-07-22 08:24] VITALS: BP 143/65
--- NOTE | 2017-07-22 16:12 | NUR ---
ASSUMED CARE AT 0730. ALERT ORIENTED PLEASANT COOPERATIVE. HX OF MS. TRANSFERS WITH SBA G BELT WALKER AND AMBULATES TO BR TO VOID. ABLE TO DO HYGEINE AND CLOTHING ADJUSTMENTS. FEEDS SELF AND TAKES MEDS WITHOUT DIFFICULTY WITH WATER. USES CALL LIGHT APPROPRIATELY FOR ASSISTANCE. BED CHAIR ALARM FOR PT. SAFETY. MEDICATED WITH PRN MED FOR C/O BACK AND LEFT FOOT PAIN WITH SOME RELIEF STATED. PROPELLS SELF IN W/C TO DR FOR MEALS, APPETITE GOOD.
[2017-07-22 21:40] VITALS: BP 132/70
--- NOTE | 2017-07-23 01:20 | NUR ---
ASSUMED CARE @ 1916-07/22-SUN.SITTING IN TOILET W/ TOILET CALL LIGHT ON.SBA FOR TRANSFER & TOILETING.HOB UP & HEELS OFF BED.WBAT.EDEMA-+2 PITTING FEET & ANKLES.BED ALARM PUT ON @ 1919.LIGHT PINK-RIGHT OUTER HEEL.ON HOURLY ROUNDS. 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
--- NOTE | 2017-07-23 05:31 | NUR ---
SLEEPING SINCE 2304.AWAKE @ INTERVALS FOR BRP W/ ASSIST X3.SEE PAIN MANAGEMENTS W/PRN HYDROCODONE @ 2219 & 0223.TOOK ALL ORANGE SHEBET & 2 PACKAGES HUAN CRACKERS HS SNACKS.
[2017-07-23 07:30] VITALS: BP 146/77
--- NOTE | 2017-07-23 18:27 | NUR ---
ASSUMED CARE AT 0730. ALERT ORIENTED PLEASANT COOPERATIVE. HX OF MS. TRANSFERS TO W/C AND BED WITH SBA G BELT AMBULATES TO BR TO VOID WITH WALKER ABLE TO DO HYGEINE CLOTHING ADJUSTMENTS. FEEDS SELF TAKES MEDS WITHOUT DIFFICULTY. PRN PAIN MEDS GIVEN EVERY 4 HRS PER PT. REQUEST FOR L FOOT PAIN AND BACK PAIN. PARTICIPATING IN THERAPIES HERE VISITING THIS AFTERNOON. PROPELLS SELF IN W/C TO THERAPIES AND DR FOR MEALS. USES CALL LIGHT APPROPRIATELY FOR ASSIST BED AND CHAIR ALARM FOR PT. SAFETY.
[2017-07-23 19:51] VITALS: BP 149/68
--- NOTE | 2017-07-23 22:23 | NUR ---
ASSUMED CARE AT 1930. HX MS EXACERBATION. VISITING WITH FRIEND AT BEGINNING OF SHIFT, ASSISTED TO BED. UP WITH ONE, GAIT BELT, WALKER. VOIDS PER SITTING ON TOILET. TAKES PILLS WHOLE WITH WATER. EDUCATION GIVEN REGARDING DIFFERENCES BETWEEN PAIN PILLS. DOES NOT WANT IBUPROFEN BETWEEN PAIN PILLS, BUT WANTS IT WITH THEM. REFUSED PILLOW TO OFFLOAD HEELS. SEE MAR FOR PAIN DOCUMENTATION. MOVES WELL IN BED. CALL LITE IN REACH, BED ALARM ON. HOURLY ROUNDING CONTINUES.
--- NOTE | 2017-07-24 05:19 | NUR ---
SLEPT MOST OF NIGHT EXCEPT TO VOID. MEDICATED FOR PAIN ABOUT Q4H. PATIENT WANTS IBUPROFEN WITH PRN PAIN MED. AMBULATED TO BR TO VOID A COUPLE OF TIMES, OTHER TIMES TOOK WHEELCHAIR TO BR AND SAT TO VOID. UP WITH ONE, GAIT BELT, WALKER. TURNS SELF IN BED. REFUSES PILLOWS TO OFFLOAD HEELS. HOURLY ROUNDS CONTINUE. BED ALARM ON. CALL LITE IN REACH.
[2017-07-24 07:38] VITALS: BP 124/72
--- NOTE | 2017-07-24 18:17 | NUR ---
PT HAS PARTICIPATED WITH THERAPIES AND AMBULATES WITH MIN ASSIST OG 1,GAITBELT AND WALKER. AND TRANSFERRS WELL. PRN FOR PAIN OF FEET AND BACK GIVEN WITH GOOD EFFECT. PT EATS MEALS IN DINNINGROOM. PT VOIDING WELL. PT REMAINS ALERT AND ORIENTATED AND PROGRESSES TOWARDS GOALS. HOURLY ROUNDING CONTINUES.
[2017-07-24 20:06] VITALS: BP 117/58
--- NOTE | 2017-07-24 21:00 | NUR ---
DOZING ON/OFF TO SLEEP. PAIN MED GIVEN FOR C/O LEFT FOOT PAIN RATED "9". TOOK MEDS WHOLE WITH WATER. CALL LIGHT WITHIN REACH.
--- NOTE | 2017-07-25 05:12 | NUR ---
RESTED QUIETLY. PAIN LEVEL OF BACK AND LEFT FOOT RATED "6" THIS AM. GIVEN SCHEDULED PAIN MEDS AND NORCO. UP X TWO DURING THE NIGHT TO THE BATHROOM TO VOID. AMBULATES WITH SBA, GAITBELT, WALKER. ABLE TO DO OWN CLOTHING ADJUSTMENTS.
--- NOTE | 2017-07-25 15:55 | NUR ---
SW met with pt and pt to review team conference summary. Plan for pt to return home with on Thursday 07/27 with HH services to follow. Pt active with [facility] so SW will send referral/resumption orders upon dc. Pt and pt in agreement with plan.
--- NOTE | 2017-07-25 18:49 | NUR ---
I ASSUMED CARE OF THE PATIENT AT 0700. HE IS ALERT AND ORIENTED X4. HIS BED IS IN THE LOW LOCKED POSITION WITH HIS CALL LIGHT IN REACH AND BED ALARM ON. HE IS SBA WITH A GAITBELT. HE HAS BILATERAL 2+ LOWER EDEMA. DURING TEAM TODAY, THEY DECIDED THAT HE WOULD GO HOME ON SUNDAY WITH HOME HEALTH. PATIENT HAD A LARGE BM TODAY AND SKIN IS GOOD. HE REQUEST PRN NORCO EVERY 4 HOURS. 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 HOURLY ROUNDING WAS DONE. PATIENT NEEDS WERE MET AND PAIN WAS MANAGED. HE IS PROGRESSING TOWARDS GOALS. WILL CONTINUE TO MONITOR. WAS AT THE BEDSIDE MOST OF THE AFTERNOON.
[2017-07-25 20:00] VITALS: BP 173/94
--- NOTE | 2017-07-26 00:30 | NUR ---
ASSUMED CARE AT 1930. PATIENT S/P MS EXACERBATION. RESTING IN BED AT CHANGE OF SHIFT. UP WITH ONE, GAIT BELT, WALKER. VOIDS PER TOILET. ABLE TO DO HYGIENE AND CLOTHING ADJUSTMENTS. TAKES PILLS WHOLE WITH WATER. MEDICATED FOR PAIN, SEE MAR. WANTS IBUPROFEN WITH HYDROCODONE. BILAT 3+ PEDAL EDEMA. DID CONSENT TO PUT FEET ON PILLOW AND OFFLOADING HEELS, BUT LATER REMOVED PILLOW. HOURLY ROUNDS CONTINUE, BED ALARM ON. CALL LITE IN REACH.
--- NOTE | 2017-07-26 06:16 | NUR ---
SLEPT MOST OF THE NIGHT EXCEPT TO VOID PER TOILET. MEDICATED FOR PAIN WITH RELIEF, SEE MAR. MOVES IN BED PER SELF. HOURLY ROUNDS CONTINUE. BED ALARM ON. CALL LITE IN REACH.
[2017-07-26 08:02] VITALS: BP 135/77
--- NOTE | 2017-07-26 11:33 | NUR ---
AM ASSESSMENT AND VITAL SIGNS COMPLETED DOCUMENTED. PT PARTICIPATING WITH THERAPY AND PROGRESSING TOWARDS DISCHARGE GOALS. FALL AND SAFETY PRECAUTIONS IN PLACE. NO ACUTE DISTRESS, WILL CONTINUE TO MONITOR.
[2017-07-26 20:38] VITALS: BP 113/74
[2017-07-27 04:58] VITALS: BP 113/74
--- NOTE | 2017-07-27 05:30 | NUR ---
ASSUMED CARES AT 1920. PT ALREADY IN BED. ALERT AND ORIENTED. PLEASANT. C/O PAINT TO BACK AND LEFT ANKLE. PAIN MEDS GIVEN PER REQUEST. TAKES PILLS WITHOUT ISSUES. BLE EDEMA 2+. LEGS UP ONTO PILLOW IN BED. HE IS A MIN ASSIST WITH GAIT BELT AND WALKER. UP TO BATHROOM FEW TIMES DURING THE NIGHT. DOES HIS OWN CARES. SLEPT OTHERWISE. USED CALL LIGHT APPROPRIATELY. BED ALARM ON.
[2017-07-27 07:30] VITALS: BP 151/70
--- NOTE | 2017-07-27 11:15 | NUR ---
Pt to dc home with today, Thursday 07/27. [facility] services to follow. Pt has needed DME at home. SW faxed needed final orders and med list to [facility].
[2017-07-27 11:21] VITALS: BP 113/74
--- NOTE | 2017-07-27 15:59 | NUR ---
ASSESSMENT AND VITAL SIGNS COMPLETED DOCUMENTED. PT HAS COMPLETED TERAPY AND HAS MET DISCHARGE GOALS. PT AND HIS PROVIDED WITH PRINTED AND VERBAL DISCHARGE INSTRUCTIONS. HOME HEALTH WILL RESUME. PT AND BELONGINGS TRANSPORTED TO THE EXIT, ASSISTED INTO CAR, DISCHARGED HOME IN STABLE CONDITION.
--- NOTE | 2017-08-08 14:12 | D ---
[facility] [address] [place] [address] DISCHARGE SUMMARY Name: REYNA BECKMAN Room: [address] IN M.R.#: [id number] Admission: 07/16/17 Attend Phys: Alanna Ritchie DO Discharge: 07/27/17 Date of : 46 Report #: [id number] THIS REPORT FOR: //name// CC: Alanna [place] DISCHARGE DIAGNOSES: Multiple sclerosis with diffuse weakness. Discharge disposition is to the home setting. Home health PT, OT and nursing. Follow up with neurology in 2-3 weeks and primary care physician within 1 week. Continue with a regular diet. Monitor weight gain. Fall precautions are also recommended. Medications were reviewed and reconciled by myself and are available in the MAR. Medications needed for discharge were given for one month supply. DISCHARGE PHYSICAL EXAMINATION: GENERAL: Alert, oriented, no apparent distress. VITAL SIGNS: Reviewed and are stable. HEENT: Head atraumatic, normocephalic. Pupils are equal, round, and reactive. ABDOMEN: Soft, nontender, and nondistended. NEUROLOGIC: Cranial nerves 2-12 are grossly intact with no focal neuro deficits, 5/5 strength in the bilateral upper and lower extremities. SKIN: Warm and dry. No rashes or lesions noted. <ELECTRONICALLY SIGNED> By: Alanna Ritchie DO 08/08/17 1412 [id number] Ritchie DO /ben
== END 2017-07-27 16:00 | disposition home health service (06) | DRG 59 ==
LOC: M.REH 11:55
PROVIDERS: Internal Medicine; ADMIT Physical Medicine & Rehabilitation
DX: G35 Multiple sclerosis (principal); M62.82 Rhabdomyolysis; E44.0 Moderate protein-calorie malnutrition; N17.9 Acute kidney failure, unspecified; F32.9 Major depressive disorder, single episode, unspecified; E78.5 Hyperlipidemia, unspecified; I10 Essential (primary) hypertension; M19.90 Unspecified osteoarthritis, unspecified site; R26.9 Unspecified abnormalities of gait and mobility; K59.00 Constipation, unspecified; R53.81 Other malaise; D64.9 Anemia, unspecified; G89.29 Other chronic pain; I16.0 Hypertensive urgency; R31.9 Hematuria, unspecified; Z86.73 Personal history of transient ischemic attack (TIA), and cerebral infarction without residual deficits; Z68.25 Body mass index [BMI] 25.0-25.9, adult; Z79.82 Long term (current) use of aspirin; Z79.899 Other long term (current) drug therapy